=== PATIENT | female | born 1970 | race Caucasian/White ===

== ENCOUNTER 2016-12-13 13:19 | Emergency (ER) | payer OTHER ==
[~2016-12-13] VITALS: Ht 152.4 cm; Wt 70.0 kg
[2016-12-13 13:22] VITALS: TEMP 36.8; Ht 152.4 cm; Wt 70.0 kg
--- NOTE | 2016-12-13 13:48 | EMERGENCY ROOM VISIT NOTE ---
ED Visit Note First contact with patient: 13:23 CHIEF COMPLAINT: Foot pain HISTORY OF PRESENT ILLNESS: This 45-year-old female patient presents to the emergency department ambulatory complaining of swelling and pain in the left foot at rest and worse with weight bearing. The patient states her symptoms started approximately 2 months ago. The patient rates the pain as sharp and 6/ 10. The patient has no relief of the pain. The patient is able to walk but states walking makes the pain worse she has pain and swelling by the end of the day. No numbness or weakness. No ankle pain. There are now lacerations of the foot. The patient is able to move all of their toes and their ankle without pain. Patient denies previous injury to this foot. The patient has seen her family doctor and was trialed on prednisone which did not help her pain. She was scheduled with podiatry but her appointment is not until the end of this month. The patient states the pain prompted her to come to the emergency department. REVIEW OF SYSTEMS: GENERAL: A 6 system review of systems was completed with positives and pertinent negatives in the HPI. ALLERGIES: Erythromycin MEDICATIONS: Albuterol PMH: Asthma SOCIAL HISTORY: The patient is a smoker. She lives locally PHYSICAL EXAM: Vital Signs: Reviewed Nurse's notes, vital signs stable. GENERAL : This is a 45-year-old female, in no acute distress, but appears in pain, well- developed, well-nourished. MUSCULOSKELETAL: There is no visual deformity of the left foot. There is no erythema or ecchymosis. There is fluctuance or warmth. There is tenderness and swelling over the plantar aspect of the left foot. The range of motion of the foot is did not limited secondary to pain. There is moderate tenderness over the plantar fascia. Dorsi flexion 5/5 and Plantar flexion 5/5. The skin is intact and there are no lacerations or puncture wounds. Dorsalis pedis pulse 2+. Capillary refill less than 2 seconds. EMERGENCY DEPARTMENT COURSE: I examined the patient. An X-ray of the left foot was reviewed by myself and ambulatory and reveals no fracture or dislocation. The patient was placed in a post-op shoe. The patient may have an overuse injury such as plantar fasciitis. She should follow-up with orthopedics for podiatry for further evaluation and management. The patient was discharged home in good condition. DIAGNOSIS: Foot pain TREATMENT: Ice and elevation for 24-48 hrs. Ibuprofen, 600mg every 6 hours for the pain. Follow-up with orthopedics and/or podiatry for further evaluation and management. With a postop shoe when up and about for the next 5-7 days. Return with any redness, warmth, fevers or generalized worsening symptoms. LEFT FOOT MIN 3 VIEWS ROUTINE CLINICAL HISTORY: left foot pain pain COMPARISON: None. DISCUSSION: The bones and joint spaces appear intact. There is no evidence of fracture, dislocation or bony disease. There is no evidence for soft tissue swelling. IMPRESSION: Negative study. Current/Historical Medications Scheduled Albuterol Hfa (Ventolin Hfa), 2-4 PUFFS INH Q6H Control Pills ( Control Pills), 1 TAB PO DAILY Multivitamin (Multivitamin), 1 TAB PO DAILY Allergies Coded Allergies: Erythromycin (Unverified Allergy, Unknown, HIVES, 12/13/16) Vital Signs Date Time Temp Pulse Resp B/P Pulse Ox O2 Delivery O2 Flow Rate FiO2 12/13/16 14:25 96 16 137/79 98 Room Air 12/13/16 13:22 36.8 114 18 153/88 97 Room Air Departure Information Impression Primary Impression: Foot pain, left Dispostion Home / Self-Care Condition GOOD Referrals No Doctor, Assigned (PCP) Jamey Mullen D.O. Patient Instructions ED Plantar Fasciitis, [facility] Additional Instructions Ice and elevation for 24-48 hrs. Ibuprofen, 600mg every 6 hours for the pain. Follow-up with orthopedics and/or podiatry for further evaluation and management. With a postop shoe when up and about for the next 5-7 days. Return with any redness, warmth, fevers or generalized worsening symptoms.
[2016-12-13] MEDS ORDERED: VNTHFA/IN INH (14:02)
[2016-12-13] MEDS ORDERED: BCPILLS PO (14:02)
[2016-12-13] MEDS ORDERED: MULT-506 PO (14:02)
--- NOTE | 2016-12-13 14:16 | DIAGNOSTIC IMAGING REPORT ---
LEFT FOOT MIN 3 VIEWS ROUTINE CLINICAL HISTORY: left foot pain pain COMPARISON: None. DISCUSSION: The bones and joint spaces appear intact. There is no evidence of fracture, dislocation or bony disease. There is no evidence for soft tissue swelling. IMPRESSION: Negative study. Electronically signed by: Mohit Carolina M.D. 12/13/2016 2:15 PM Dictated Date/Time: 12/13/2016 2:14 PM
[2016-12-13 14:25] VITALS: BP 137/79; PULSE 96; O2SAT 98
== END 2016-12-13 14:48 | disposition home or self-care (01) ==
LOC: C.EDB 13:21 → C.EDD 14:48
DX: M79.672 Pain in left foot (principal); J45.909 Unspecified asthma, uncomplicated; Z79.899 Other long term (current) drug therapy; F17.210 Nicotine dependence, cigarettes, uncomplicated; Z79.3 Long term (current) use of hormonal contraceptives

== ENCOUNTER 2017-08-14 15:55 | Emergency (ER) | payer OTHER ==
[~2017-08-14] VITALS: Ht 152.4 cm; Wt 70.9 kg
[~2017-08-14 15:55] MED LIST: BCPILLS PO; MULT-506 PO; VNTHFA/IN INH
[2017-08-14 16:04] VITALS: TEMP 36.9; Ht 152.4 cm; Wt 70.9 kg
[2017-08-14] MEDS ORDERED: IBUP-1450 PO (16:19)
--- NOTE | 2017-08-14 16:34 | EMERGENCY ROOM VISIT NOTE ---
History First contact with patient: 16:10 Chief Complaint: FOOT PAIN Stated Complaint: FOOT PAIN History of Present Illness The patient is a 46 year old female who presents to the Emergency Room with complaints of left foot pain after having a fall from a step stool 2 days ago. The patient is unsure how she landed. She has injured this foot in the past. Her pain is worse with weightbearing. She has taken ibuprofen with minimal pain relief. She also complains of pain into the lateral aspect of the ankle. No numbness or tingling. No other injuries. Review of Systems 6 system review negative. Please see pertinent positives in the history of present illness section. Past Medical/Surgical History Otherwise healthy Social History Smoking Status: Current Every Day Smoker Current/Historical Medications Scheduled Albuterol Hfa (Ventolin Hfa), 2-4 PUFFS INH Q6H Control Pills ( Control Pills), 1 TAB PO DAILY Multivitamin (Multivitamin), 1 TAB PO DAILY Scheduled PRN Ibuprofen (Motrin), 600 MG PO BID PRN for Pain Physical Exam Vital Signs Date Time Temp Pulse Resp B/P (MAP) Pulse Ox O2 Delivery O2 Flow Rate FiO2 08/14/17 17:39 93 16 159/81 99 08/14/17 16:04 36.9 110 20 161/87 99 Room Air Physical Exam VITALS: Vitals are noted on the nurse's note and reviewed by myself. Vital signs stable. GENERAL: 46-year-old female, in no acute distress, nondiaphoretic, well- developed well-nourished. SKIN: The skin was without rashes, erythema, edema, or bruising. HEAD: Normocephalic atraumatic. MUSCULOSKELETAL: LLE: Tenderness to palpation particularly over the second and third metatarsal. Capillary refill in the toes is less than 2 seconds. DP pulse +2. Mild tenderness over the lateral malleolus. Pain with dorsiflexion. NEURO: Patient was alert and oriented to person place and time. Normal sensation to touch. No focal neurological deficits. Medical Decision & Procedures ER Provider Diagnostic Interpretation: Ankle and foot x-ray IMPRESSION: Mild soft tissue swelling with no radiographic evidence of left ankle fracture. Electronically signed by: Jeff Bermudez M.D. 08/14/2017 4:45 PM Dictated Date/Time: 08/14/2017 4:45 PM The status of this report is Signed. Draft = Not yet reviewed or approved by Radiologist. Signed = Reviewed and approved by Radiologist. IMPRESSION: No acute bony abnormality is identified in the left foot. Electronically signed by: Jeff Bermudez M.D. 08/14/2017 5:01 PM Dictated Date/Time: 08/14/2017 5:00 PM The status of this report is Signed. Draft = Not yet reviewed or approved by Radiologist. Signed = Reviewed and approved by Radiologist. <AttendingPhy></AttendingPhy> <FamilyPhy>No Doctor, Assigned</FamilyPhy> < PrimaryPhy>No Doctor, Assigned</PrimaryPhy> <UnitNumber>[id number]</UnitNumber> <VisitNumber>[id number]</VisitNumber> ED Course The patient was seen and examined Imaging was performed and reviewed The findings were discussed with the patient. She voiced understanding. Discharge instructions were reviewed, and she was discharged in good condition Medical Decision Differential diagnosis: Fracture, contusion, tendon injury This patient is a 46-year-old female that presents emergency department with complaints of left foot and ankle pain after a fall from a step stool. On exam , the patient had tenderness over the dorsal aspect of the distal foot. She had pain with dorsiflexion. Imaging was performed. No fractures were noted. I believe she likely has a strain of the extensor tendons. The patient was put in a postop shoe and given crutches. The foot. She was instructed to follow- up with her orthopedic doctor if there is no improvement in the next 5 days. She is in agreement with this plan, and was discharged in good condition This chart was completed in part utilizing [employer] Speech Voice Recognition software. Attempts were made to minimize the grammatical errors, random word insertions, pronoun errors and incomplete sentences. Any formal questions or concerns about the content, text or information contained within the body of this dictation should be directly addressed to the provider for clarification. Impression Primary Impression: Strain of foot Departure Information Dispostion Home / Self-Care Condition GOOD Referrals No Doctor, Assigned (PCP) Jamey Mullen D.O. Patient Instructions [facility] Additional Instructions You were evaluated in the emergency department for left foot pain. No fractures were seen on the x-ray. This is likely a strain of the tendons. Please wear the postop shoe and use crutches for the next 3 days. Please ice and elevate the foot for 20 minute intervals If there is no improvement, please follow-up with your orthopedic surgeon within the next 5-7 days. Ibuprofen 800 mg and/or Tylenol 1000 mg every 8 hours for pain You may also alternate these medications for more effective pain relief: Ibuprofen --4 HRS--> Tylenol --4 HRS--> ibuprofen --4 HRS--> Tylenol .... Please do not hesitate to return to the emergency department with any new, worsening or concerning symptoms
--- NOTE | 2017-08-14 16:47 | DIAGNOSTIC IMAGING REPORT ---
LEFT ANKLE 3 VIEWS CLINICAL HISTORY: Left ankle pain. FINDINGS: 3 views of the left ankle are obtained. No prior studies are available for comparison at the time of dictation. The skeletal structures are well mineralized. No fracture is seen. The ankle mortise is intact. There is a tiny dorsal calcaneal enthesophyte. No joint effusion is identified. Mild soft tissue swelling is noted. IMPRESSION: Mild soft tissue swelling with no radiographic evidence of left ankle fracture. Electronically signed by: Jeff Bermudez M.D. 08/14/2017 4:45 PM Dictated Date/Time: 08/14/2017 4:45 PM
--- NOTE | 2017-08-14 17:03 | DIAGNOSTIC IMAGING REPORT ---
LEFT FOOT 3 VIEWS CLINICAL HISTORY: Left foot pain. FINDINGS: 3 views of left foot are compared to study dated 12/13/2016. The skeletal structures are well mineralized. No fracture is seen. The joint spaces of the foot are maintained. A tiny dorsal calcaneal enthesophyte is observed. The overlying soft tissues are within normal limits. IMPRESSION: No acute bony abnormality is identified in the left foot. Electronically signed by: Jeff Bermudez M.D. 08/14/2017 5:01 PM Dictated Date/Time: 08/14/2017 5:00 PM
[2017-08-14 17:39] VITALS: BP 159/81; PULSE 93; O2SAT 99
== END 2017-08-14 17:41 | disposition home or self-care (01) ==
LOC: C.EDB 15:56 → C.EDD 17:41
DX: S96.212A Strain of intrinsic muscle and tendon at ankle and foot level, left foot, initial encounter (principal); W10.8XXA Fall (on) (from) other stairs and steps, initial encounter; F17.200 Nicotine dependence, unspecified, uncomplicated; Z79.3 Long term (current) use of hormonal contraceptives